=== PATIENT | female | born 1965 | race Caucasian/White ===

== ENCOUNTER → 2023-09-28 07:58 | Outpatient (REF) | payer OTHER, SELFPAY | LOC: WDC 07:58 | PROVIDERS: ATTENDING PHYSICIAN Obstetrics & Gynecology Gynecology; FAMILY PHYSICIAN Family Medicine | DX: Z12.31 Encounter for screening mammogram for malignant neoplasm of breast (principal) | CPT/HCPCS: 77063; 77067 ==

== ENCOUNTER → 2024-02-28 06:17 | Day surgery (SDC) | payer OTHER, SELFPAY | LOC: GI 06:17 | PROVIDERS: ATTENDING PHYSICIAN Internal Medicine | DX: Z12.11 Encounter for screening for malignant neoplasm of colon (principal); D12.8 Benign neoplasm of rectum | CPT/HCPCS: 45385; 88305 ==

== ENCOUNTER → 2024-08-16 13:52 | Outpatient (REF) | payer OTHER, SELFPAY | LOC: RAD 13:52 | PROVIDERS: ATTENDING PHYSICIAN Obstetrics & Gynecology Gynecology; FAMILY PHYSICIAN Family Medicine | DX: N83.209 Unspecified ovarian cyst, unspecified side (principal) | CPT/HCPCS: 76830; 76856 ==

== ENCOUNTER → 2024-10-03 07:00 | Outpatient (REF) | payer OTHER, SELFPAY | LOC: WDC 07:00 | PROVIDERS: ATTENDING PHYSICIAN Obstetrics & Gynecology Gynecology; FAMILY PHYSICIAN Family Medicine | DX: Z12.31 Encounter for screening mammogram for malignant neoplasm of breast (principal) | CPT/HCPCS: 77063; 77067 ==